=== PATIENT | female | born 1985 | race Caucasian/White ===

== ENCOUNTER → 2019-07-18 07:47 | Outpatient (CLI) | payer SELFPAY ==
--- NOTE | 2019-07-18 07:54 | US_ITS ---
STUDY: ABDOMINAL ULTRASOUND - RIGHT UPPER QUADRANT REASON FOR VISIT: Female, 33 years old RUQ PAIN TECHNIQUE: Ultrasound evaluation of the right upper quadrant was performed with real-time and static gill-scale imaging. TECHNICAL QUALITY: Adequate. COMPARISON: None. FINDINGS: Liver: The liver measures 16.0 cm. There is normal echogenicity of the liver. The bile ducts are within normal limits. There is hepatic color flow. The direction of portal flow is hepatopetal. There is no demonstrated mass lesion. Gallbladder: Normal distended gallbladder. The gallbladder wall measures 2.0 mm. There is a negative sonographic Patel''s sign. There is no pericholecystic fluid. There are no gallstones. Common Bile Duct (C.B.D.): The common bile duct measures 2.4 mm. Pancreas: Normal size of the head, body and tail of the pancreas. There is normal echogenicity of the pancreas. There is no demonstrated pancreatic mass or cyst. Right Kidney: Normal size of the right kidney. The right kidney measures 11.5 cm x 4.3 cm x 5.0 cm. Normal renal cortex. The right cortex measures 1.3 cm. There is no demonstrated renal mass or cyst. There is no right hydronephrosis. US/Abdomen Limited IMPRESSION: Normal right upper quadrant ultrasound examination. Electronically Signed: Meño Vazquez, at 9:10 EDT , Service support ,
== END ==
PROVIDERS: PCP Family Medicine; Referring Provider Family Medicine; Visit Provider Family Medicine
DX: R11.0 Nausea (principal); R10.13 Epigastric pain
CPT/HCPCS: 76705

== ENCOUNTER 2019-12-27 23:37 | Day surgery (SDC) | payer OTHER, SELFPAY ==
[2019-12-27 23:38] VITALS: TEMP 36.3
[2019-12-27 23:48] VITALS: BP 92/62; PULSE 94; RESP 18; O2SAT 100
[2019-12-28] VITALS (10 sets, daily range): BP systolic 90–99; BP diastolic 57–63; PULSE 79–104; RESP 14–16; TEMP 36.3–37; O2SAT 97–100
[2019-12-28] MEDS: 0.9% Normal Saline 1,000 ML 1000 ML IV
[2019-12-28 00:14] LABS: Basophil# 0.08 X10^3/uL; Basophil% 0.4 % (0-1); Differential Indicated SCAN CRITERIA MET; Eosinophil# 0.32 X10^3/uL; Eosinophils% 1.5 % (0-5); Hemoglobin 11.9 g/dL (12.0-15.0); Lymphocyte % 25.8 % (19-41); Mean Corpuscular Hgb 30.1 pg (27.0-32.0); Mean Corpuscular Volume 88.4 fL (81-99); Mean Platelet Vol. 8.9 fl (6.2-12.0); Monocyte# 1.09 X10^3/uL; Monocyte% 5.2 % (0-10); NRBC Flagged by Analyzer 0 % (0-5); Neutrophil # 13.99 X10^3/uL (2.7-7.7); Neutrophil % 66.7 % (47-70); POSITIVE DIFFERENTIAL YES; Platelet Count 400 K/mm3 (150-450); RBC Distribution Width SD 38.9 fl (35.1-43.9); Red Blood Count 3.96 M/mm3 (4.2-5.4)
[2019-12-28 00:23] LABS: Anion Gap 10 (5-15); BUN 13 mg/dL (7-18); Calcium,Total 8.6 mg/dL (8.5-10.1); Chloride 109 mmol/L (98-107); Creatinine, Serum 0.68 mg/dL (0.55-1.02); EST Glomerular Filtration Rate 104 mL/min (>60); Est Glom Filt Rate - Afr Amer 126 mL/min (>60); Estimated Creatinine Clearance 99.22 ml/min; Glucose 151 mg/dL (74-106); Potassium 3.4 mmol/L (3.5-5.1); Sodium Level 139 mmol/L (136-145)
[2019-12-28] MEDS: fentaNYL 100 MCG/2 ML Ampul 50 MCG IV ×2 (00:26→02:38)
[2019-12-28] MEDS: Ondansetron 4 MG/2 ML Vial IV ×2 (00:27→07:36)
[2019-12-28 00:31] LABS: hCG Titer Quant., Serum 9765 mIU/mL (1-3)
[2019-12-28 00:35] LABS: Differential Comment SCANNED
--- NOTE | 2019-12-28 00:41 | US_ITS ---
HISTORY: Heavy bleeding tonight. Spotting started Tuesday. Miscarriage 3 weeks ago. Technique: 54 images and for cine clips. No comparison imaging of the pelvis. Findings: Endovaginal imaging only: The uterus and cervix measure 10.6 x 5.3 x 6.5 cm. The endometrial stripe is thickened and fairly homogeneous. Endometrial stripe is measured 2.5 cm. Within the lower uterine segment, abutting the internal cervical os there is an irregularly marginated fluid collection. This fluid collection is measured at 1.9 x 1.9 x 1.4 cm. On the anterior margin of this fluid collection there is an oval shaped structure measuring 6 mm in long axis dimension. No blood flow on color Doppler imaging or heart motion on M-mode imaging is detected within this structure. US/Transvaginal w/Preg US IMPRESSION: Structure consistent with an irregular gestational sac, and a possible embryo without heart motion within the lower uterine segment above the internal cervical os. This likely represents a missed AB. Based on crown-rump length estimated gestational age is 6 weeks 3 days. at 0253 Reported and signed by: Arnol Richmond MD Electronically Signed: Arnol Richmond MD at 2:52 EDT Tel , Service support ,
[2019-12-28 00:56] LABS: Prothrombin Time (Protime)PT. 12.4 SECONDS (11.7-14.9)
[2019-12-28 00:57] LABS: Partial Thromboplast Time 25.7 Seconds (24.1-36.2)
[2019-12-28] MEDS: 0.9% Normal Saline 1,000 ML 999 ML IV (01:03)
[2019-12-28] MEDS: miSOPROStol 200 MCG Tablet 1000 MCG RECTAL (01:04)
[2019-12-28 01:27] LABS: Fibrinogen 322 mg/dl (203-444)
[2019-12-28 01:40] LABS: Mucous, Urine 0 SEEN /hpf (<or=2+); Red Blood Cells-Urine 0 SEEN /hpf (0-5); Squamous Epithelial Cells - UA 0 SEEN /hpf (5-10); White Blood Cells 0 SEEN /hpf (0-5)
[2019-12-28 01:41] LABS: Color, Urine Yellow (Yellow); Glucose, Dipstick Normal (Normal); Ketone-Dipstick Negative (Negative); Leukocyte Esterase-Dipstick Negative /ul (Negative); Nitrite-Dipstick Negative (Negative); Occult Blood-Urine Negative /ul (Negative); Protein-Dipstick 15 mg/dl (Negative); Specific Gravity, Urine 1.015 (1.002-1.030); Urine Bilirubin Dipstick Negative (Negative); Urine Clarity Cloudy (Clear); Urine Urobilinogen Normal (Normal)
[2019-12-28 01:47] LABS: Amorphous Sediment 1+; Bacteria 2+ /hpf (None Seen)
--- NOTE | 2019-12-28 03:00 | ED.DCSUM_ITS ---
- ER Visit Summary Date of Service: 12/28/19 Chief Complaint: Vaginal bleeding History of Present Illness: The patient is a 34 F presenting with heavy vaginal bleeding. Patient is 11 weeks . She found out at 9 weeks that there was no heartbeat. She has history of previous miscarriages in the past. She is G7, P4. On Tuesday she started having spotting. This evening she started having heavy bleeding with clots. On arrival to the ED she had a syncopal episode in triage. Physical Examination: Vitals are stable. Blood pressure 92/62. Patient is afebrile. Alert no acute distress. HEENT exam is unremarkable. Pallor Neck is supple. Lungs are clear and equal bilaterally. Heart is regular rate and rhythm. Abdomen is soft suprapubic tenderness with no guarding or rebound : Moderate amount of blood cleared from the vaginal vault. Cervical os is open. Extremities are unremarkable. Skin is warm and dry. Remainder of exam is unremarkable. Emergency Department Course and Treatment: Patient was given IV fluids. She was given fentanyl and Zofran. White count is 21, hemoglobin 11.9. Chemistries unremarkable. Coag studies unremarkable. Urinalysis normal. Quant 9765. Blood type A positive. Pelvic ultrasound shows structure consistent with an irregular gestational sac, and a possible embryo without heart motion within the lower uterine segment above the internal cervical os. This likely represents a missed AB. Based on crown- rump length estimated gestational age is 6 weeks [address] Chapin. Patient was given Zosyn IV. She was given Cytotec rectally. She will be taken to the OR for D&C. Disposition: To OR Impression: Missed This note was generated with [employer] dictation software. It may contain incorrect words, spelling, and punctuation that were not noted in review of the chart prior to signing ED Disposition - Plan for ED Patient: Referrals: Con Veras MD [Primary Care Provider] -
--- NOTE | 2019-12-28 04:30 | POC_PTH ---
PATIENT: CAIO SANDOVAL LOC: [facility] [place] U#:[id number] AGE/SX: 34/F ROOM: RE12/28/[address]: Dr. Cayla Chapin MD : [id number] BED: DIS: 12/28/2019 SPEC #: [id number] RECD: 12/28/19 07:44 STATUS: AIDEE CHRIS #: [id number] RONY: 12/28/19 04:[address]: Cayla Chapin DEPT: SURGICAL PATHOLOGY RECD BY: Jose Alfredo Back ENTERED: 12/28/19 09:09 SP TYPE: PROD CONC OTHR DR: Dr. Con Veras MD Tissues: Product of conception, NOS Procedures: Surgery Specimen Level IV HEADER OPERATION: Suction dilation and curettage PRE-OP DIAGNOSIS: Incomplete TISSUE SUBMITTED: Products of conception MICROSCOPIC DIAGNOSIS Products of conception: [place], gestational endometrium, immature chorionic villi and a minute piece of tissue (products of conception). SJ:marleny 01/01/20 MICROSCOPIC DESCRIPTION Slides are reviewed. GROSS DESCRIPTION Received in fixative is one container labeled with the patient's name and designated products of conception. The specimen consists of multiple fragments of pink hemorrhagic soft tissue that in aggregate measure 6 x 6 x 2.5 cm. tissue is not identified. Information [employer] Associate tissue is submitted in three cassettes. / SHAYAN:marleny 12/28/19 TC:5 CPT: 38157
--- NOTE | 2019-12-28 05:39 | PCM.OPRPT ---
Report of Operation Date of Procedure: 12/28/19 Pre-Operative Diagnosis: Incomplete Post-Operative Diagnosis: Incomplete Surgery/Procedure Performed:: Suction curettage Description of Surgical Findings:: moderate products of conception Type of Anesthesia:: Block,Isael/Supplemental, MAC, MAC/Supplemental/Local Anesthesiologist: Hunter Smith Specimen's removed: products conception Drains: urine 600ml Estimated Blood Loss (mL): 30 Description of Procedure: Once patient was comfortably sedated she was prepped and draped in sterile fashion and the bladder emptied of urine. Bimanual exam confirmed a soft anteverted 9 wk size uterus. After positioning the weighted tenaculum, 1ml of 1% lidocaine was placed at 1200 on cervix, the Turner tenaculum placed, and a paracervical block obtained with 9 ml of same in either uterosacral ligament. The os was open and using a 7 curved suction curette, two passes were made at 50 mm of Hg, to empty the uterus of a lot of products. Third pass yielded little. The uterus was massaged again and found to be firm. The anterior lip was bleeding from the tenaculum site and after pressure did not resolve this, 2 simple sutures were placed for good hemostasis. The patient was awakened and taken to the Recovery area in good condition.
--- NOTE | 2019-12-28 05:55 | DCINST_ITS ---
Discharge Activity: May Not Drive - for 48 h Return to work on:: 01/24/20 May shower in (days): 0 May resume sexual activity in: 4-6 weeks Weight Bearing Status: Weight bearing as tolerated Additional Activity Instructions:: No lifting more than 10lb for 5 days, no tub bath for 2 wks Call your doctor if you observe: Fever of 101 or Higher, Inability to urinate, Dizziness, Fainting spells, Uncontrolled pain Additional Instructions: Call for bleeding more than a period Allergies/Adverse Reactions: Allergies shellfish derived Allergy (Verified 12/27/19 23:37) Anaphylaxis poultry Adverse Reaction (Uncoded 12/27/19 23:37) Other GI Upset Medications to take at Discharge Cetirizine HCl [Zyrtec] 10 mg PO DAILY 09/24/13 Vits [Prenatabs FA ] 1 tablet PO DAILY 09/24/13 Acetaminophen [Tylenol] 1,000 mg PO Q8H PRN #20 tab 12/28/19 Ibuprofen [Motrin] 600 mg PO Q6 #20 tab 12/28/19 The following prescriptions were given: Ibuprofen [Motrin] 600 mg PO Q6 #20 tab Transmission Status: Received by [facility]/pharmacy #[id number] Acetaminophen [Tylenol] 1,000 mg PO Q8H PRN #20 tab Transmission Status: Received by [facility]/pharmacy #[id number] Primary Care Physician: Con Veras MD [Primary Care Provider] - Test Results: Test results from this visit will be discussed in further detail at your follow- up appointment, if applicable. Please Follow Up With: Cayla Chapin MD When: 1 week
[2019-12-28 06:43] LABS: Hemoglobin 9.6 g/dL (12.0-15.0)
== END 2019-12-28 08:14 | disposition home or self-care (01) ==
LOC: ED 12-28 00:45 → SDC 12-28 04:08 → AC 12-28 04:09
PROVIDERS: Emergency Provider Emergency Medicine; PCP Family Medicine; Visit Provider Obstetrics & Gynecology Gynecology
PROC: (CPT 59812; principal; 2019-12-28 04:30)
DX: O03.1 Delayed or excessive hemorrhage following incomplete spontaneous abortion (principal); Z3A.11 11 weeks gestation of pregnancy; O26.21 Pregnancy care for patient with recurrent pregnancy loss, first trimester
CPT/HCPCS: 59812; 36415; 76817; 80048; 81001; 84702; 85014; 85018; 85025; 85384; 85610; 85730; 86850; 86900; 86901; 88305; 99283; J7030; J7050; A4216; J2405

== ENCOUNTER → 2020-06-05 14:00 | Outpatient (CLI) | payer SELFPAY ==
[2020-06-05 13:48] VITALS: BMI 22.3
[2020-06-11 16:18] LABS: HPV APTIMA, High Risk Negative (Negative)
== END ==
PROVIDERS: PCP Family Medicine; Referring Provider Nurse Practitioner Women's Health; Visit Provider Nurse Practitioner Women's Health
DX: Z12.4 Encounter for screening for malignant neoplasm of cervix (principal)
CPT/HCPCS: 87624; 88175; G0145

== ENCOUNTER → 2020-06-27 14:05 | Outpatient (CLI) | payer SELFPAY ==
[2020-06-05 13:48] VITALS: BMI 22.3
--- NOTE | 2020-06-27 14:12 | US_ITS ---
STUDY: ULTRASOUND OF THE FEMALE PELVIS - COMPLETE REASON FOR EXAM: Female, 34 years old. Pain LMP: 06/18/2020 TECHNIQUE: Transabdominal and Transvaginal TECHNICAL QUALITY: Adequate. COMPARISON: December 28, 2019 Limited comparison pelvis OB ultrasound. FINDINGS: The uterus is anteverted and is in a midline position. The uterus measures 11.9 x 6.7 x 2.9 cm. Normal uterine cervix. The endometrium measures 13 mm in thickness, and is hyperechoic. There is a mildly thickened appearance of the lower uterine segment and cervical endometrium. There is no demonstrated endometrial mass. There is no demonstrated myometrial mass. I.U.D. - The patient does not have an I.U.D. The myometrial veins are prominent. On the left side there is a left-sided Uterine vein and measures at least 6 mm. On the right towards the cervix there are several measure 3 and 4 mm one can be measured up to 5 mm. Adnexal veins appear prominent. There are arterial structures are also prominent as well. The right ovary is visualized. The right ovary measures 3.3 x 3.7 x 1.8 cm. There is no right ovarian cyst or ovarian mass. There is no visualized right adnexal mass or complex lesion. There is normal arterial and normal venous vascularity. The left ovary is visualized. The left ovary measures 4.4 x 3.8 x 2.6 cm. Is a left ovarian cyst measuring 2.2 x 1.9 x 1.6 cm. On image 37 and 38 there is visualized subtle internal echogenicity within the left ovarian cyst. This internal echogenicity allowing for positioning and/or technique may have a small focus of vascularity. There is increased arterial and increased venous vascularity. There is no fluid in the cul-de-sac. Transabdominal: The pre void volume of the bladder was 167.4 ml. Polycystic ovary disease: No. US/Transvaginal Non- IMPRESSION: Borderline enlarged uterus. Bilateral fairly symmetric prominence of the venous and some structures. The periuterine and intrauterine veins are also prominent. Could consider pelvic congestion type syndrome. Nonspecific mild prominence of the lower ureter segment endometrium for which a follow-up is warranted . There is a complex left ovarian cyst which may have merely a technique-related focus of peripheral vascularity versus a cyst with a echogenic or nodular component with vascularity which would be considered atypical for which a follow-up is warranted. Recommend a short-term interval follow-up study in 2-3 months particularly to evaluate the left adnexa/ovarian cyst to ensure stability. No visualized torsion. Could consider follow-up study such as MRI of the pelvis. Electronically Signed: Sima Baig MD at 9:10 EST Tel , Service support ,
== END ==
PROVIDERS: PCP Family Medicine; Referring Provider Nurse Practitioner Women's Health; Visit Provider Nurse Practitioner Women's Health
DX: R10.2 Pelvic and perineal pain (principal)
CPT/HCPCS: 76830; 76856; 93976

== ENCOUNTER → 2020-08-22 15:19 | Outpatient (CLI) | payer SELFPAY ==
[2020-06-05 13:48] VITALS: BMI 22.3
--- NOTE | 2020-08-22 15:25 | US_ITS ---
STUDY: ULTRASOUND OF THE FEMALE PELVIS - COMPLETE REASON FOR EXAM: Female, 34 years old. ovarian cyst, F/U LMP: 08/11/2020 TECHNIQUE: Transabdominal and Transvaginal TECHNICAL QUALITY: Adequate. COMPARISON: 06/27/2020 FINDINGS: The uterus is anteverted and is in a midline position. The uterus measures 10.7 x 6.6 x 3.0 cm. Normal uterine cervix. The endometrium measures 8 mm in thickness, and is hyperechoic. There is no demonstrated endometrial mass. There is no demonstrated myometrial mass. I.U.D. - The patient does not have an I.U.D. The right ovary is visualized. The right ovary measures 3.7 x 2.9 x 2.4 cm. There is no right ovarian cyst or ovarian mass. There is no visualized right adnexal mass or complex lesion. There is normal arterial and normal venous vascularity. The left ovary is visualized. The left ovary measures 2.9 x 1.9 x 1.7 cm. There is no left ovarian cyst or ovarian mass. There is no visualized left adnexal mass or complex lesion. There is normal arterial and normal venous vascularity. There is no fluid in the cul-de-sac. The pre void volume of the bladder was ml. The post void volume of the bladder was ml. Polycystic ovary disease: No. US/Transvaginal Non- IMPRESSION: Normal female pelvis. Electronically Signed: Santosh Calles MD at 12:49 EDT Tel , Service support ,
--- NOTE | 2020-08-22 15:25 | US_ITS ---
STUDY: ULTRASOUND OF THE FEMALE PELVIS - COMPLETE REASON FOR EXAM: Female, 34 years old. ovarian cyst, F/U LMP: 08/11/2020 TECHNIQUE: Transabdominal and Transvaginal TECHNICAL QUALITY: Adequate. COMPARISON: 06/27/2020 FINDINGS: The uterus is anteverted and is in a midline position. The uterus measures 10.7 x 6.6 x 3.0 cm. Normal uterine cervix. The endometrium measures 8 mm in thickness, and is hyperechoic. There is no demonstrated endometrial mass. There is no demonstrated myometrial mass. I.U.D. - The patient does not have an I.U.D. The right ovary is visualized. The right ovary measures 3.7 x 2.9 x 2.4 cm. There is no right ovarian cyst or ovarian mass. There is no visualized right adnexal mass or complex lesion. There is normal arterial and normal venous vascularity. The left ovary is visualized. The left ovary measures 2.9 x 1.9 x 1.7 cm. There is no left ovarian cyst or ovarian mass. There is no visualized left adnexal mass or complex lesion. There is normal arterial and normal venous vascularity. There is no fluid in the cul-de-sac. The pre void volume of the bladder was ml. The post void volume of the bladder was ml. Polycystic ovary disease: No. US/Pelvic (Non ) IMPRESSION: Normal female pelvis. Electronically Signed: Santosh Calles MD at 12:49 EDT Tel , Service support ,
== END ==
PROVIDERS: PCP Family Medicine; Referring Provider Nurse Practitioner Women's Health; Visit Provider Nurse Practitioner Women's Health
DX: N83.202 Unspecified ovarian cyst, left side (principal)
CPT/HCPCS: 76830; 76856